=== PATIENT | female | born 1960 | race Caucasian/White ===

== ENCOUNTER 2024-01-15 10:55 | Emergency (ER) | payer MEDICARE, MEDICAID, SELFPAY ==
[2024-01-15 11:07] VITALS: BMI 25.8
--- NOTE | 2024-01-15 11:08 | XR_ITS ---
FINAL REPORT CLINICAL HISTORY: INJURY COMPARISON: None FINDINGS: RIGHT FOOT: Three views of the right foot were obtained. There is a transverse nondisplaced fracture of the base of the fifth metatarsal. No other evidence of fracture is seen. There is a hallux valgus deformity identified. Mild degenerative changes present. Small calcaneal spurs are noted. There is no soft tissue abnormality. IMPRESSION: Transverse fracture, nondisplaced, of the base of the fifth metatarsal. Degenerative changes as described above. Reviewed, Interpreted and Dictated by Peterson Greene III, MD Transcribed by Kisha Parham Authenticated and [facility]
--- NOTE | 2024-01-15 11:08 | XR_ITS ---
FINAL REPORT CLINICAL HISTORY: INJURY COMPARISON: None FINDINGS: RIGHT ANKLE: Three views of the right ankle were obtained. There is no acute fracture or dislocation. The joint spaces and mortise are intact. There is no soft tissue abnormality. IMPRESSION: No acute bony abnormality. Reviewed, Interpreted and Dictated by Peterson Greene III, MD Transcribed by Kisha Parham Authenticated and [facility]
--- NOTE | 2024-01-15 11:47 | ED_ITS ---
Discharge Plan Disposition Patient Disposition: Home, Self-Care Condition: Good Prescriptions Prescriptions: No Action atorvastatin 20 mg tablet 20 mg PO DAILY Patient Comments: TAKE ONE TABLET BY MOUTH DAILY famotidine 40 mg tablet 40 mg PO DAILY Patient Comments: TAKE ONE TABLET BY MOUTH EVERY DAY tramadol 50 mg tablet 50 mg PO DAILY Patient Comments: TAKE ONE TABLET BY MOUTH TWICE DAILY NEEDED fluticasone furoate-vilanterol [Breo Ellipta] 200-25 mcg/dose blister with device 1 inh INHALATION DAILY Referrals Follow up/Referrals: Pepe Tang MD [Primary Care Provider] - See instructions Marissa Damon DPM [Staff Physician] - See instructions Activity Restrictions/Add. Instructions Additional Instructions/Restrictions: Rest the extremity, apply ice for 15 minutes as tolerated three or four times per day, Elevate the extremity as tolerated while you are resting. Follow up with Dr. Damon (podiatry). I put in a referral but you need to call her office and schedule an appointment. Weigth bearing as tolerated on the foot, but use the walker for ambulation assistance. Follow up with your regular doctor. GO TO THE ER FOR ANY WORSENING SYMPTOMS Clinical Impressions Clinical Impression: Fracture of right foot Instructions Patient Instructions: How to Choose and Use a Walker, Foot Fracture, DI for Foot Fracture, How to Use a Walking Boot Discharge ED Provider: Eliel Jenkins [facility] General Stated complaint: AO Pain and swelling in R ankle Time Seen by Provider: 01/15/24 11:47 History of Present Illness Provider Complaint: She states that this morning when she stood up she felt a pop in her right foot. Since then she has had right foot pain that is worse when she bears weight on the foot. She denies any injury other than feeling the pop. She denies any other complaints or issues. Related Data Home Medications Medication Instructions Recorded Confirmed atorvastatin 20 mg tablet 20 mg PO DAILY 01/15/24 01/15/24 famotidine 40 mg tablet 40 mg PO DAILY 01/15/24 01/15/24 fluticasone furoate 200 1 inh inhalation DAILY 01/15/24 01/15/24 mcg-vilanterol 25 mcg/dose inhalation powder (Breo Ellipta) tramadol 50 mg tablet 50 mg PO DAILY 01/15/24 01/15/24 Allergies Allergy/AdvReac Type Severity Reaction Status Date / Time cephalexin [From Keflex] Allergy Verified 01/15/24 12:05 meperidine [From Demerol] Allergy Verified 01/15/24 12:05 Penicillins Allergy Verified 01/15/24 12:05 [facility] Disclaimer: The information contained in this section may have been updated after the patient was seen, as this information can be updated by other users. Medical History (Updated 01/15/24 @ 13:35 by Eliel Jenkins APRN) Breast cancer COPD (chronic obstructive pulmonary disease) Surgical History (Updated 01/15/24 @ 12:07 by Ilene Christopher RN) History of tubal ligation History of mastectomy History of tonsillectomy History of cholecystectomy Social History Smoking Status: Never smoker alcohol intake: never current occupational status: retired Travel in the last 8 weeks: None ROS Obtained: Yes All systems reviewed & no additional complaints except as documented Constitutional Constitutional: Denies chills and Denies fever(s) Eyes Eyes: Denies eye discharge ENT Ears, Nose, Mouth, and Throat: Denies dizziness, Denies otalgia and Denies sore throat Cardiovascular Cardiovascular: Denies chest pain Respiratory Respiratory: Denies shortness of breath, Denies chest congestion, Denies cough, Denies stridor and Denies wheezing Gastrointestinal Gastrointestingal: Denies nausea or vomiting Musculoskeletal Musculoskeletal: Reports as per HPI Integumentary/Breasts Skin/Breast: Denies redness, Denies rash and Denies wounds Neurologic Neurologic: Denies dizziness and Denies paresthesias Allergic/Immunologic Allergic/Immunologic: Denies wheezing Physical Exam General General appearance: alert and in no apparent distress Head Head exam: atraumatic, normocephalic and normal inspection Eye Eye exam: Present normal appearance, PERRL and EOMI ENT ENT exam: Present normal exam, normal oropharynx, mucous membranes moist, TM's normal bilaterally and normal external ear exam Neck Neck exam: Present normal inspection, full ROM and trachea midline; Absent meningismus or lymphadenopathy Chest Chest inspection: Present normal inspection and symmetric chest wall rise; Absent tenderness Respiratory Respiratory exam: Present normal lung sounds bilaterally; Absent respiratory distress Cardiovascular Cardiovascular exam: Present regular rate and normal rhythm; Absent JVD Abdominal Exam Abdominal exam: Present soft and normal bowel sounds; Absent distention, tenderness or guarding Extremities Exam Extremities exam: Present normal capillary refill; Absent calf tenderness Expanded Lower Extremity Exam Right: Knee exam: Present normal inspection, full ROM and knee extension intact; Absent tenderness Lower leg exam: Present normal inspection, full ROM and Achilles tendon intact; Absent tenderness or Homans' sign Ankle exam: Present full ROM; Absent tenderness, swelling, abrasion, laceration, ecchymosis, deformity, crepitus, dislocation, erythema, tenderness over talofibular lig or anterior draw sign Foot/toe exam: Present tenderness, swelling and tenderness at base of 5th metatarsal; Absent full ROM, abrasion, laceration, ecchymosis, deformity, crepitus, dislocation, erythema, amputation, puncture wound, foreign body, calcaneal tenderness, nail avulsion or subungual hematoma Neurovascular/Tendon exam: Present normal capillary refill and normal 2- point discrimination; Absent pulse deficit, motor deficit, sensory deficit, tendon deficit, extremity cold to touch or pallor Gait: observed and limited by pain Back Exam Back exam: Present normal inspection; Absent tenderness Neurological Exam Neurological exam: Present alert and oriented X3 Psychiatric Psychiatric exam: Present normal affect and normal mood Skin Skin exam: Present warm, dry, intact and normal color Lymphatic Lymphatic Findings: no adenopathy Medical Decision Making Medical Records Medical records reviewed: No I reviewed the patient's medical records. [place]man Inquiry Pt receiving controlled substance: No Orders (Tests/Meds): ORDERS Category Date Time Status Foot XR right minimum 3 views [XR foot RT min 3V] Stat Exams 01/15/24 11:08 Taken XR ankle RT min 3V Stat Exams 01/15/24 11:08 Taken Radiology Data #1: Image(s): Foot/Toes Image Reviewed: Yes I reviewed the patient's radiology image and Yes Patience rinaldi reviewed radiologist's interpretation Preliminary Findings: Abnormal FINAL REPORT CLINICAL HISTORY: INJURY COMPARISON: None FINDINGS: RIGHT FOOT: Three views of the right foot were obtained. There is a transverse nondisplaced fracture of the base of the fifth metatarsal. No other evidence of fracture is seen. There is a hallux valgus deformity identified. Mild degenerative changes present. Small calcaneal spurs are noted. There is no soft tissue abnormality. IMPRESSION: Transverse fracture, nondisplaced, of the base of the fifth metatarsal. Degenerative changes as described above. Reviewed, Interpreted and Dictated by Peterson Greene III, MD Transcribed by Kisha Parham Authenticated and [facility]: Image(s): Ankle Image Reviewed: Yes I reviewed the patient's radiology image and Yes I have reviewed radiologist's interpretation Preliminary Findings: No Fracture Seen FINAL REPORT CLINICAL HISTORY: INJURY COMPARISON: None FINDINGS: RIGHT ANKLE: Three views of the right ankle were obtained. There is no acute fracture or dislocation. The joint spaces and mortise are intact. There is no soft tissue abnormality. IMPRESSION: No acute bony abnormality. Reviewed, Interpreted and Dictated by Peterson Greene III, MD Transcribed by Kisha Parham Authenticated and [facility] Procedures Risk/Benefits of Procedure(s) Were Explained: Yes Orthopedic Splinting/Casting Injury #1: Side: left Lower Extremity Injury Location: ankle and foot Lower Extremity Immobilizer: boot orthosis and applied by nurse/dr lópez Other Orthopedic Equipment: walker (walker prescribed) Post Cast/Splinting Neuro Status: intact and no change Post Cast/Splinting Vasc Status: intact and no change
[2024-01-15 11:50] VITALS: BP 102/53; PULSE 77; RESP 21; TEMP 36.7; O2SAT 99; BMI 22.5
[2024-01-15 13:42] VITALS: BP 102/53; PULSE 77; RESP 21; TEMP 36.7; O2SAT 99
== END 2024-01-15 13:47 | disposition home or self-care (01) ==
PROVIDERS: Emergency Provider Nurse Practitioner Family; PCP Family Medicine
DX: S92.354A Nondisplaced fracture of fifth metatarsal bone, right foot, initial encounter for closed fracture (principal); X50.0XXA Overexertion from strenuous movement or load, initial encounter
CPT/HCPCS: 73610; 73630; 99204; 99212; G0463